=== PATIENT | male | born 1975 | race Caucasian/White ===

== ENCOUNTER 2019-09-20 06:28 | Emergency (ER) | payer OTHER ==
[~2019-09-20] VITALS: Ht 182.8 cm; Wt 99.8 kg
[2019-09-20] MEDS ORDERED: MEDROL DOSEPAK4 MG PO (06:46)
== END 2019-09-20 07:20 | disposition home or self-care (01) ==
LOC: ED 06:28
DX: M54.5 Low back pain (principal); M62.830 Muscle spasm of back; X50.1XXA Overexertion from prolonged static or awkward postures, initial encounter; Y93.89 Activity, other specified; Y92.098 Other place in other non-institutional residence as the place of occurrence of the external cause; Y99.8 Other external cause status